=== PATIENT | female | born 1945 | race Caucasian/White ===

== ENCOUNTER 2021-01-05 09:53 | Day surgery (SDC) | payer OTHER ==
[~2021-01-05] VITALS: Ht 144.8 cm; Wt 96.6 kg
[~2021-01-05 09:53] MED LIST: ATORVASTATIN CA80 MG PO; CALCIUM + D3 E1 EACH PO; CENTRUM SILVER1 EAC5 PO; FUROSEMIDE 40 M40 MG PO; HUMALOG100 UNIT/1 SUBQ; IRON325 M1 PO; LANTUS SUBQ; LISINOPRIL20 MG PO; NORVASC10 MG PO; PLAVIX 75 MG TA75 MG PO; POTASSIUM20 PO; TRAMADOL 50 MG50 MG PO; TYLENOL325 MG PO
[2021-01-05 11:00] VITALS: BP 156/54
--- NOTE | 2021-01-06 20:06 | PATH ---
[facility] [address] [place] [address] PATHOLOGY RPT PROCEDURE Name: THUY CRENSHAW Room #: DEP [facility] M.R.#: [id number] Admission: 01/05/21 Date of : 49 Discharge: 01/05/21 Report #: [id number] Path Case #: [id number] [facility] Accession Number: [id number] . 01 Material submitted: . 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 Modifiers: left . 01 Clinical history: . ENUCLEATION,UNILATERAL BLINDNESS LEFT EYE CONJUCTIOVOPLASTY . 02 Diagnosis: Eye, left eye suture lateral rectus muscle, enucleation: - Neovascularization of the retinal surface along with basement membrane thickening of the vessels, compatible with the provided history of diabetes. - Dystrophic calcifications of the lens material, history of blind eye. (IUV:dejon; 01/06/2021) MBR 01/06/2021 1610 Local . 02 Electronically signed: . Sima Shafer MD, Pathologist NPI- [id number] . 01 Gross description: . The specimen is received in formalin, labeled "Thuy Crenshaw, blind left eye secondary to diabetes, suture lateral rectus muscle" is a 5 g left enucleation specimen oriented with a suture at the lateral rectus muscle. The specimen measures 1.5 cm superior to inferior, 2.5 cm lateral to medial and 2.1 cm from the cornea to optic nerve margin. The optic nerve margin is inked black. The remainder of the specimen is inked as: Lateral yellow, medial red, superior blue, and inferior green. Patternmaker Hand sections are submitted in 5 cassettes A1 shaved optic nerve margin A2 shaved lateral rectus margin A3 shaved medial rectus margin A4-A5 sagittal sections of grossly unremarkable surfaces ([facility]; 01/05/2021) ASHLEIGH/ASHLEIGH 01/05/2021 2146 Local . 02 Pathologist provided ICD-10: H54.40 . 02 CPT . [id number] [address] [address] PATHOLOGY RPT PROCEDURE Name: THUY CRENSHAW Room #: DEP [facility].#: [id number] Admission: 01/05/21 Date of : 49 Discharge: 01/05/21 Report #: [id number] Path Case #: [id number] Specimen Comment: A courtesy copy of this report has been sent to [phone] Specimen Comment: 1300 Specimen Comment: Report sent to / DR MENDIOLA Performed at: [address], [place], [place] [id number] MD Rex Woods MD Phone: [phone] Performed at: [address] [id number] MD Sima Shafer MD Phone: [phone]
--- NOTE | 2021-01-09 06:13 | O ---
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 PROCEDURES: Enucleation of left eye with implantation of 16 mm Medpor sphere with muscles attached to implant, conjunctivoplasty, temporary tarsorrhaphy. SURGEON: Slade Ramires MD. [employer]: None. ANESTHESIA: General. COMPLICATIONS: None. INDICATIONS FOR SURGERY: This pleasant 75-year-old woman has a blind painful left eye as a result of diabetes. She presents today for removal of the left eye with reconstruction of the socket in order to improve her level of comfort. Informed consent was obtained to include but not limited to the potential risk for loss of blood, scarring, and the potential need for further surgery or treatment. DESCRIPTION OF PROCEDURE: The patient was taken to the operating room where general anesthesia was administered. The left socket was then anesthetized with Xylocaine with epinephrine mixed with Marcaine and Wydase. This patient was subsequently prepped and draped in the usual sterile fashion. A lid speculum was placed on the left side while a moistened sponge was placed on the right. A 360-degree conjunctival peritomy was performed trying to preserve as much of the conjunctival tissue as possible up to the limbus. This was limited by conjunctival scarring from her prior disease process. The oblique quadrants was then bluntly dissected with a Loreta scissor. A muscle hook was then used to grasp the lateral rectus muscle, which was then isolated from the surrounding connective tissue bluntly. A double arm 5-0 Vicryl suture was then passed through its insertion with locking bites at each margin. The lateral rectus [facility] [address] [place] [address] OPERATIVE REPORT Name: JOSE LUIS CRENSHAW Room #: DEP [facility] M.R.#: [id number] Admission: 01/05/21 Attend Phys: Slade Ramires MD Discharge: 01/05/21 Date of : 49 Report #: [id number] muscle was then cut from the globe. A 4-0 silk suture was then used through the insertion of the lateral rectus muscle to use as traction. The inferior, medial and superior rectus muscles were all similarly isolated and cleaned of connective tissue prior to being isolated with a double arm pass from a 5-0 Vicryl suture. They were all subsequently amputated from the globe. The superior oblique and inferior oblique muscles were isolated and cut where they attached to the globe. The optic nerve was then clamped with a hemostat for 3 minutes. The hemostat was released and reclamped for 3 more minutes. The hemostat was released one last time and then clamped for 2 more minutes. The optic nerve was then cut with an enucleation scissor. Minimal bleeding ensued. An 18 mm sizing sphere could be fit behind posterior tenons, but it was very snug. Considering the patient's diabetes, the decision was made to use a smaller sphere. A 16 mm Medpor sphere was then vacuum aspirated in antibiotic irrigation solution and subsequently reposited behind posterior tenons with the aid of an easy glide introducer. Posterior tenons was then closed over the implant with buried 5-0 Vicryl sutures. The medial and lateral rectus muscles were then attached to the implant with interrupted 5-0 Vicryl sutures. The superior and inferior rectus muscles were then attached to the implant with interrupted buried 5-0 Vicryl sutures. Anterior tenon was then closed over this closure with interrupted 5-0 Vicryl sutures. The conjunctiva was then undermined sufficiently to allow conjunctivoplasty to be performed. Hemostasis was then re-achieved. That conjunctival flap was then advanced from superior temporal and inferonasally. It was secured with 6-0 Vicryl sutures. A medium conformer was placed in the socket followed by erythromycin ophthalmic ointment. A temporary tarsorrhaphy was then fashioned from a short section of IV tubing and a double arm pass from a 5-0 nylon suture. An additional aliquot of the same anesthetic mixture used at the beginning of the case was then reposited behind the implant to provide additional analgesia. The wound was then dressed with a Telfa pad followed by 2 eye pads, which were held in place with silk tape and Mastisol. The patient was subsequently transported to the recovery area having tolerated the procedure well with no anesthetic or operative complications being noted. MD SRIDHAR Rogers/MAHNAZ [facility] [address] [place] [address] OPERATIVE REPORT Name: JOSE LUIS CRENSHAW Room #: [facility] MStefano#: [id number] Admission: 01/05/21 Attend Phys: Slade Ramires MD Discharge: 01/05/21 Date of : 49 Report #: [id number] <ELECTRONICALLY SIGNED> By: Slade Ramires MD 01/09/21 0613 1230 [id number] Slade Ramires MD /nt
== END 2021-01-05 14:40 | disposition home or self-care (01) ==
LOC: OR 09:53 → TBA 09:55 → OR 13:03
PROVIDERS: ATTEND Ophthalmology
DX: H57.12 Ocular pain, left eye (principal); H11.242 Scarring of conjunctiva, left eye; I11.0 Hypertensive heart disease with heart failure; I50.9 Heart failure, unspecified; E11.9 Type 2 diabetes mellitus without complications; E78.00 Pure hypercholesterolemia, unspecified; G47.30 Sleep apnea, unspecified; I73.9 Peripheral vascular disease, unspecified; F32.9 Major depressive disorder, single episode, unspecified; Z98.890 Other specified postprocedural states; Z79.899 Other long term (current) drug therapy; Z98.42 Cataract extraction status, left eye; Z88.8 Allergy status to other drugs, medicaments and biological substances
CPT/HCPCS: 50010; 50101; 50386; 50398; 51636; 51854; 53500; 62110; 62900; 64037; 70005